=== PATIENT | female | born 1990 | race Caucasian/White ===

== ENCOUNTER 2021-07-18 15:29 | Outpatient (CLI) | payer OTHER, SELFPAY ==
--- NOTE | ~2021-07-18 | US_ITS ---
EXAMINATION: US thyroid EXAM DATE: 07/18/2021 16:05 INDICATION: Nontoxic goiter. TECHNIQUE: Multiple grayscale and Doppler images of the thyroid were obtained (by a technologist who performed the scan) and subsequently reviewed. Individual nodules and recommendations may be reporte d in accordance with TI-RADS system as designated by the 2017 ACR White Paper TI-RADS committee. The re is no prior study for comparison. FINDINGS: Right thyroid lobe measures 5.4 x 1.7 x 1.5 cm in the left measuring 5.4 x 1.6 x 1.3 cm mildly hetero geneous thyroid echogenicity without focal suspicious nodule identified. Dimensions are mildly enlarg ed. IMPRESSION: 1. Mild thyromegaly. Reviewed, dictated and finalized at location B. LIFE MANAGEMENT PROFESSOR IMPRESSION: 1. Mild thyromegaly.
== END 2021-07-18 15:30 | disposition home or self-care (01) ==
LOC: ANHIMG 15:31
PROVIDERS: PCP Internal Medicine; Visit Provider Physician Assistant
DX: E04.9 Nontoxic goiter, unspecified (principal)
CPT/HCPCS: 76536

== ENCOUNTER 2022-01-17 08:44 | Outpatient (CLI) | payer OTHER, SELFPAY ==
[2022-01-17 09:10] LABS: Hematocrit 40.1 % (37.0-47.0); Mean Corpuscular HGB Conc 32.4 g/dl (32-36); Mean Corpuscular Volume 95.5 fl (80-100); Mean Platelet Volume 10.9 fl (7.4-10.4); Platelet Count Result 236 k/mm3 (150-375)
== END 2022-01-17 08:45 | disposition home or self-care (01) ==
LOC: ANHLAB 08:48
PROVIDERS: PCP Internal Medicine; Visit Provider Nurse Practitioner
DX: N93.8 Other specified abnormal uterine and vaginal bleeding (principal)
CPT/HCPCS: 36415; 85027

== ENCOUNTER 2022-01-18 10:45 | Outpatient (CLI) | payer OTHER, SELFPAY ==
[2022-01-18 11:43] LABS: Beta HCG Quantitative < 2.39 mIU/ML
[2022-01-18 11:59] LABS: Free T4 Free Thyroxine 0.74 ng/mL (0.78-2.19)
[2022-01-18 13:46] LABS: Hemoglobin A1C 4.9 % (<5.7)
[2022-01-21 04:14] LABS: Prolactin 6.1 ng/mL (***)
[2022-01-21 04:48] LABS: DHEA-Sulfate 148 mcg/dL (23-266); Insulin Level Total 6.4 uIU/mL (<=19.6)
[2022-01-24 16:12] LABS: Testosterone Free 6.4 pg/mL (0.1-6.4); Testosterone Total 36 ng/dL (2-45)
== END 2022-01-18 10:46 | disposition home or self-care (01) ==
LOC: ANHLAB 10:47
PROVIDERS: PCP Internal Medicine; Visit Provider Nurse Practitioner
DX: N93.8 Other specified abnormal uterine and vaginal bleeding (principal)
CPT/HCPCS: 36415; 82627; 83036; 83498; 83525; 84146; 84402; 84403; 84439; 84443; 84702

== ENCOUNTER 2023-11-07 10:46 | Outpatient (CLI) | payer BC, SELFPAY ==
--- NOTE | ~2023-11-07 | US_ITS ---
EXAMINATION: US thyroid DATE: 11/07/2023 10:57 INDICATION: Goiter. TECHNIQUE: Multiple ultrasound images of the thyroid were obtained. COMPARISON: None. FINDINGS: The right thyroid lobe measures 5.5 x 1.6 x 2.0 cm. The left thyroid lobe measures 5.2 x 1.9 x 1.8 c m. There is normal echotexture and echogenicity throughout the thyroid gland. No discrete nodules id entified. Normal vascular flow is present. IMPRESSION: 1. Normal thyroid. Reviewed, dictated and finalized at location A. IMPRESSION: 1. Normal thyroid.
== END 2023-11-07 10:47 ==
PROVIDERS: PCP Physician Assistant; Visit Provider Physician Assistant
DX: E04.9 Nontoxic goiter, unspecified (principal)
CPT/HCPCS: 76536

== ENCOUNTER 2023-12-05 17:05 | Emergency (ER) | payer BC, SELFPAY ==
[2023-12-05 17:16] VITALS: BP 133/74; PULSE 78; RESP 16; TEMP 36.4; O2SAT 99
--- NOTE | 2023-12-05 18:11 | ED.SKABFB ---
HPI - Skin/Abscess/Foreign Bdy General Chief complaint: Skin/Abscess/Foreign Body Stated complaint: Full body rash Time Seen by Provider: 12/05/23 17:43 History of Present Illness HPI narrative: 33-year-old female presents to the emergency department for itchy rash throughout her whole body. Patient states she has had itchy plaques her right elbow and scalp for about a year. Patient states at the end of October 2023 she began developing a itchy, red and raised rash to her neck which she was attributing to either her a shampoo or hair dye. She saw local urgent care and was prescribed a Medrol Dosepak and Keflex. States this rash improved. Around November 04 she began developing a diffuse itchy rash throughout her trunk, arms, elbows and back and scalp. She was seen by her PCP and was prescribed a topical antifungal and use it on a lesion on her chest that she has had for years and states that worked. She can contact her PCP and stated that the antifungal did not work on the rest of the rash and was prescribed betamethasone to use on the lesions on her scalp which improved. States she has been using an lpir-bfp-scafize hydrocortisone cream on the remainder of the rash which has offered some improvement. She is scheduled with a business objects architect in a couple of weeks but presented today for further evaluation. She states that she did use a tea tree lotion and ?magic urachal oral? throughout her body about 3-4 weeks ago and the diffuse rash throughout her trunk and arms shortly developed after. She is unsure if this is an allergic reaction. She is concerned she has psoriasis. She denies fever, URI prodrome, lesions to the palmar aspect of her feet. States she has some itchy areas to her hands but has not noticed a significant rash to the palmar aspect of her hands. She is not sexually active and denies concern for STDs, no recent tick or bug exposure. Related Data Home Medications Medication Instructions Recorded Confirmed cholecalciferol (vitamin D3) 1,250 1,250 mcg PO WEEKLY 08/10/20 mcg (50,000 unit) capsule dextroamphetamine-amphetamine ER 30 mg PO DAILY 08/10/20 30 mg 24hr capsule,extend release (Adderall XR) Allergies Allergy/AdvReac Type Severity Reaction Status Date / Time No Known Allergies Allergy Verified 05/11/17 16:30 Review of Systems Review of Systems: CONSTITUTIONAL: Denies fever, chills, or sweats. EYES: Denies visual changes, redness, or discharge. ENT: Denies rhinorrhea, congestion, sore throat, or otalgia. CARDIOVASCULAR: Denies chest pain, palpitations, or edema. RESPIRATORY: Denies cough or dyspnea. GASTROINTESTINAL: Denies abdominal pain, nausea, vomiting, or diarrhea. GENITOURINARY: Denies dysuria or hematuria. SKIN: See HPI MUSCULOSKELETAL: Denies back pain, joint pain, or myalgia. NEUROLOGIC: Denies headache, numbness, or weakness. PSYCHIATRIC: Denies anxiety or depression. [facility] Past Medical History Medical History ADHD (attention deficit hyperactivity disorder) Depression Migraine Family History Family History Grandparent Depression Social History Social History Smoking status: Never smoker Alcohol intake: current Alcohol use details: rarely Exam Narrative: GENERAL: Well-appearing, well-nourished, and in no acute distress. HEAD: Normocephalic, atraumatic. EYES: PERRLA and EOMI. ENT: Nares clear, no rhinorrhea or epistaxis. Mucous membranes moist. No lesions to oral mucosa. NECK: Supple. CHEST: Clear to auscultation. No respiratory distress. HEART: Regular rate and rhythm. No murmur heard. Normal peripheral pulses. EXTREMITIES: Normal range of motion. No edema. SKIN: Large erythematous and scaling plaque to the posterior scalp and base of the neck. Maculopapular diffuse rash throughout the trunk,
[2023-12-05 19:18] VITALS: BP 131/75; PULSE 78; RESP 17; TEMP 36.8; O2SAT 100
== END 2023-12-05 19:15 | disposition home or self-care (01) ==
PROVIDERS: Emergency Provider Physician Assistant; PCP Physician Assistant
DX: R21 Rash and other nonspecific skin eruption (principal); F90.9 Attention-deficit hyperactivity disorder, unspecified type; F32.A Depression, unspecified
CPT/HCPCS: 99283